=== PATIENT | female | born 1950 | race Caucasian/White ===

== ENCOUNTER 2017-08-12 19:30 | Outpatient (CLI) | payer BC, MEDICARE | END 2017-08-12 19:31 | disposition home or self-care (01) | LOC: SLEEPLAB 19:30 | PROVIDERS: ATTEND Family Medicine | DX: G47.33 Obstructive sleep apnea (adult) (pediatric) (principal); I10 Essential (primary) hypertension | CPT/HCPCS: 95811 ==

== ENCOUNTER 2019-08-23 18:00 | Outpatient (CLI) | payer MEDICARE, BC | END 2019-08-23 18:01 | disposition home or self-care (01) | LOC: SLEEPLAB 18:00 | PROVIDERS: ATTEND Family Medicine | DX: G47.33 Obstructive sleep apnea (adult) (pediatric) (principal); G47.10 Hypersomnia, unspecified; I10 Essential (primary) hypertension; J45.909 Unspecified asthma, uncomplicated; F32.9 Major depressive disorder, single episode, unspecified; E78.00 Pure hypercholesterolemia, unspecified; M19.90 Unspecified osteoarthritis, unspecified site; E07.9 Disorder of thyroid, unspecified | CPT/HCPCS: 95806 ==

== ENCOUNTER 2020-10-31 09:00 | Outpatient (CLI) | payer MEDICARE, BC ==
[2020-10-31 11:49] LABS: Hemoglobin 12.1 g/dL (12.0-15.5); Mean Corpuscular HGB CONC 34.2 g/dL (32.0-36.0); Mean Corpuscular Hemoglobin 30.3 pg (27.0-33.0); Mean Corpuscular Volume 88.7 fl (81.6-98.3); Mean Platelet Volume 11.1 fl (7.4-10.4); Platelet Count 217 10x3/uL (150-450); RBC Distribution Width 12.7 % (11.5-14.5); Red Blood Cell (RBC) Count 3.99 10x6/uL (3.90-5.03); White Blood Cell (WBC) Count 5.7 10x3/uL (3.5-10.5)
[2020-10-31 12:10] LABS: Anion Gap 18 mmol/L (10-20); BUN (Urea Nitrogen) 16 mg/dL (9.8-20.1); Calc. Creatinine Clearance 0 mL/min (70-130); Calcium 9.6 mg/dL (7.8-10.44); Carbon Dioxide 20 mmol/L (23-31); Chloride 107 mmol/L (98-107); Glucose 184 mg/dL (80-115); Sodium 141 mmol/L (136-145)
[2020-10-31 17:56] LABS: SARS-CoV-2 PCR by NAA Not Detected (NotDetected)
== END 2020-10-31 09:01 | disposition home or self-care (01) ==
LOC: LABBT 09:00
PROVIDERS: ATTEND Neurological Surgery
DX: Z01.818 Encounter for other preprocedural examination (principal); M51.26 Other intervertebral disc displacement, lumbar region; M48.061 Spinal stenosis, lumbar region without neurogenic claudication; Z20.822 Contact with and (suspected) exposure to COVID-19
CPT/HCPCS: 80048; 85027; 93005; U0003; U0005; 87635; 93010

== ENCOUNTER 2020-11-05 05:46 | Day surgery (SDC) | payer MEDICARE, BC ==
[2020-11-04 11:58] VITALS: BMI 33.3
[2020-11-05] MEDS ORDERED: Bupivacaine PF 0.5% 30 ML VIAL ONE (06:11)
[2020-11-05] MEDS ORDERED: Thrombin 5000 UNITS/5 ML VIAL ONE (06:11)
[2020-11-05] MEDS ORDERED: EPINEPHrine 1 MG/ML AMP ONE (06:11)
[2020-11-05] MEDS ORDERED: Scopolamine 1.5 mg/72 hour Patch ONE (06:29)
[2020-11-05] MEDS ORDERED: Dexamethasone 20 MG/5 ML VIAL ONE (06:30)
[2020-11-05] MEDS ORDERED: Glycopyrrolate 0.2 MG/ML 5 ML SYRINGE ONE (06:30)
[2020-11-05] MEDS ORDERED: Ondansetron PF 4 MG/2 ML Vial ONE (06:30)
[2020-11-05] MEDS ORDERED: PROPOFOL 200 MG/20 ML VIAL ONE (06:30)
[2020-11-05] MEDS ORDERED: Lidocaine 1% PF 5 ML VIAL ONE (06:30)
[2020-11-05] MEDS ORDERED: Rocuronium Bromide 10 MG/ML (10ML VIAL) ONE (06:30)
[2020-11-05] MEDS ORDERED: Metoclopramide HCl 10 MG/2 ML VIAL ONE (06:30)
[2020-11-05] MEDS ORDERED: Famotidine/PF 20 mg/2ml Vial ONE (06:40)
[2020-11-05] MEDS ORDERED: Fentanyl 250 MCG/5 ML VIAL ONE (06:40)
[2020-11-05] MEDS ORDERED: Levofloxacin 500 mg/D5W 100 ml Premix Bag ONE (06:46)
[2020-11-05] MEDS ORDERED: Clindamycin/D5W 900 mg/50 ml Premix Bag ONE (06:46)
[2020-11-05] MEDS ORDERED: Promethazine HCl 25 MG/ML VIAL ONE (09:38)
== END 2020-11-05 11:22 | disposition home or self-care (01) ==
LOC: SDC 05:46
PROVIDERS: ATTEND Neurological Surgery
PROC: 01NB0ZZ Release Lumbar Nerve, Open Approach (ICD-10-PCS; principal; 2020-11-05)
DX: M51.16 Intervertebral disc disorders with radiculopathy, lumbar region (principal); M48.061 Spinal stenosis, lumbar region without neurogenic claudication; G47.33 Obstructive sleep apnea (adult) (pediatric); I10 Essential (primary) hypertension; E78.5 Hyperlipidemia, unspecified; E89.0 Postprocedural hypothyroidism; M19.90 Unspecified osteoarthritis, unspecified site; J30.2 Other seasonal allergic rhinitis; Z79.899 Other long term (current) drug therapy; Z88.0 Allergy status to penicillin; Z88.2 Allergy status to sulfonamides; Z91.018 Allergy to other foods
CPT/HCPCS: 76000; J0171; J1100; J1956; J2405; J2550; J2704; J2765; J3010; J3490; S0020; S0028

== ENCOUNTER 2023-06-20 10:03 | Outpatient (CLI) | payer MEDICARE, BC | END 2023-06-20 10:04 | disposition home or self-care (01) | LOC: SCSRAD 10:03 | PROVIDERS: ATTEND Family Medicine | DX: M25.552 Pain in left hip (principal); M16.12 Unilateral primary osteoarthritis, left hip ==